=== PATIENT | male | born 1965 | race Caucasian/White ===

== ENCOUNTER 2019-01-29 07:53 | Emergency (ER) | payer BC ==
[2019-01-29 08:03] VITALS: BP 149/80
--- NOTE | 2019-01-29 08:25 | UC ---
General HPI - HPI Summary HPI Summary: , pt c/o bodyaches, muscle aches and "felt like flu". Tuesday, noted some swelling around his R ear and cheek as well. Tuesday he had some fatigue and a temp of 102.7 and "almost went to the ER". Today, the fever broke but now all of his forehead and R cheek are red, R eye is swollen and his forehead is weeping. No hx DM, MRSA or new exposures. No tick bites. No eye pain or pain with eye movement. - History of Current Complaint Chief Complaint: [facility] Stated Complaint: INSECT BITE - FEVER, EYE SWELLING Time Seen by Provider: 01/29/19 08:10 Hx Obtained From: Patient Onset/Duration: Gradual Onset Timing: Constant Pain Intensity: 0 - Allergy/Home Medications Allergies/Adverse Reactions: Allergies Allergy/AdvReac Type Severity Reaction Status Date / Time No Known Allergies Allergy Verified 01/29/19 08:03 Home Medications: Home Medications Propranolol TAB* [Inderal TAB*] 20 mg PO TID 01/29/19 [History Confirmed ] PMH/Surg Hx/FS Hx/Imm Hx Neurological History: Migraine - Surgical History Surgical History: None - Family History Known Family History: Positive: Non-Contributory - Social History Occupation: Employed Full-time Alcohol Use: None Substance Use Type: None Smoking Status (MU): Light Every Day Tobacco Smoker Household Exposure Type: Cigarettes Review of Systems All Other Systems Reviewed And Are Negative: Yes Constitutional: Positive: Fever, Chills, Fatigue Skin: Positive: Rash Eyes: Negative: Blurred Vision, Diplopia, Drainage, Eye Redness, Photophobia Musculoskeletal: Positive: Myalgia Is Patient Immunocompromised?: No Physical Exam Triage Information Reviewed: Yes Appearance: Well-Appearing - but sweating Vital Signs: Initial Vital Signs Temp 98.1 F 01/29/19 07:57 Pulse 110 01/29/19 07:57 Resp 16 01/29/19 07:57 BP 149/80 01/29/19 07:57 Pulse Ox 97 01/29/19 07:57 Eyes: Positive: Other: - PERRL, EOMI, AC's clear. Painless EOMI and no protrusion. ENT: Positive: Pharynx normal, TMs normal, Other - No auricular adenopathy. Negative: Nasal congestion, Nasal drainage Neck: Positive: Supple, Nontender, No Lymphadenopathy Respiratory: Positive: Lungs clear, Normal breath sounds Cardiovascular: Positive: RRR, No Murmur. Negative: Tachycardia Abdomen Description: Positive: Nontender Bowel Sounds: Positive: Present Musculoskeletal: Positive: ROM Intact Neurological: Positive: Alert Psychological: Positive: Age Appropriate Behavior Skin Exam: Normal Skin: Positive: Rashes - Erythema around R ear into entire forehead and R cheek. R periorbital edema. R central forehead has some serous weeping. The rash is warm. Course/Dx - Course Course Of Treatment: [facility] called. Nadege Nicolas NP advised of large area facial cellulitis, fever to 102.7 and BA, MM aches. pt agrees to ER transfer and will drive self directly there. - Differential Dx - Multi-Symptom Differential Diagnoses: Other - facial cellulitis. possible early periorbital cellulitis. no concern for orbital cellulitis. - Diagnoses Provider Diagnosis: Facial cellulitis Discharge - Sign-Out/Discharge Documenting (check all that apply): Patient Departure All imaging exams completed and their final reports reviewed: No Studies - Discharge Plan Condition: Stable Disposition: TRANS HIGHER LVL OF CARE FAC Additional Instructions: LEAVE HERE AND GO DIRECTLY TO THE [facility] DISCUSSED - Billing Disposition and Condition Condition: STABLE Disposition: Trans Higher Lvl of Care Fac
== END 2019-01-29 08:32 | disposition short-term general hospital (02) ==
LOC: UCCORT 07:53
DX: L03.211 Cellulitis of face (principal); M79.10 Myalgia, unspecified site; F17.210 Nicotine dependence, cigarettes, uncomplicated
CPT/HCPCS: 99202; G0463